=== PATIENT | male | born 1950 | race Caucasian/White ===

== ENCOUNTER 2021-04-05 12:46 | Day surgery (SDC) | payer MEDICARE, MEDICAID ==
[2021-03-31 11:14] LABS: BASOPHILS # (AUTO) 0.1 X10'3 (0-0.2); BASOPHILS % (AUTO) 0.7 % (0-1); EOSINOPHILS % (AUTO) 0.5 % (0-6); HEMATOCRIT 43.9 % (42.0-52.0); HEMOGLOBIN 15.4 g/dl (14.0-17.9); LYMPHOCYTES # (AUTO) 2.2 X10'3 (1.1-4.8); LYMPHOCYTES % (AUTO) 24.2 % (21-51); MEAN CORPUSCULAR HEMOGLOBIN 31.3 PG (27.0-31.0); MEAN CORPUSCULAR HGB CONC 35.1 g/dL (33.0-36.5); MEAN CORPUSCULAR VOLUME 89.2 FL (78-98); MEAN PLATELET VOLUME 7.1 FL (7.4-10.4); MONOCYTES # (AUTO) 0.5 X10'3 (0-0.9); MONOCYTES % (AUTO) 5.4 % (2-12); NEUTROPHILS # (AUTO) 6.4 X10'3 (1.8-7.7); NEUTROPHILS % (AUTO) 69.2 % (42-75); PLATELET COUNT 540 X10'3 (140-440); RED BLOOD COUNT 4.92 X10'6 (4.70-6.10); RED CELL DISTRIBUTION WIDTH 20.4 % (11.5-14.5); WHITE BLOOD COUNT 9.2 X10'3 (4.5-11.0)
[2021-03-31 11:26] LABS: ALANINE AMINOTRANSFERASE 24 U/L (12-78); ALBUMIN 3.5 G/DL (3.4-5.0); ALKALINE PHOSPHATASE 54 IU/L (46-116); ANION GAP 13 (8-16); ASPARTATE AMINO TRANSFERASE 14 U/L (10-37); BILIRUBIN,DIRECT 0.1 MG/DL (0-0.3); BILIRUBIN,TOTAL 0.4 MG/DL (0.1-1.0); BLOOD UREA NITROGEN 8 MG/DL (7-18); BUN/CREATININE RATIO 8.5 (5.4-32.0); CALCIUM 8.5 MG/DL (8.5-10.1); CHLORIDE 100 MMOL/L (99-107); CHOLESTEROL 165 MG/DL (0-200); CREATININE 0.94 MG/DL (0.60-1.10); GLUCOSE 95 MG/DL (70-104); HDL CHOLESTEROL 55 MG/DL (35-60); LDL CHOLESTEROL 83 MG/DL (50-100); POTASSIUM 4.3 MMOL/L (3.5-5.1); SODIUM 135 MMOL/L (135-145); TOTAL CARBON DIOXIDE 21.9 MMOL/L (24-32); TOTAL PROTEIN 7.1 G/DL (6.4-8.2); TRIGLYCERIDES 94 MG/DL (20-135); eGFR 79 ML/MIN
[2021-03-31 12:31] LABS: PLATELET ESTIMATE INCREASED
[2021-03-31 12:32] LABS: ANISOCYTOSIS 3+; GIANT PLATELET FEW; LARGE PLATELETS FEW
[2021-03-31 12:39] LABS: PARTIAL THROMBOPLASTIN TIME 29 SECONDS (22-32)
[2021-04-05] VITALS (9 sets, daily range): BP systolic 127–157; BP diastolic 66–89
[2021-04-05] MEDS ORDERED: LORazepam 0.5 MG tablet PO PRN (13:05)
[2021-04-05] MEDS ORDERED: diphenhydrAMINE 25mg capsule PO PRN (13:05)
[2021-04-05] MEDS ORDERED: normal saline 1,000 ML IV SCH (13:05)
[2021-04-05] MEDS ORDERED: CLOB30CR11 TOP (13:13)
[2021-04-05] MEDS ORDERED: HYDR500C2 PO (13:13)
[2021-04-05] MEDS ORDERED: RIVA2.5T PO (13:13)
[2021-04-05] MEDS ORDERED: SIMV-42 PO (13:13)
[2021-04-05] MEDS ORDERED: DIVA-52 PO (13:13)
[2021-04-05] MEDS ORDERED: LISI10TA27 PO (13:13)
[2021-04-05] MEDS ORDERED: VENL75CA61 PO (13:13)
[2021-04-05] MEDS ORDERED: CLOP75TA34 PO (13:13)
[2021-04-05] MEDS ORDERED: heparin 1,000unit/ml 10ml vial 10 ML ONE (13:58)
[2021-04-05] MEDS ORDERED: midazolam 1 mg/ML 2ml injection ONE (13:58)
[2021-04-05] MEDS ORDERED: verapamil 2.5 mg/ml inj IV ONE (13:58)
[2021-04-05] MEDS ORDERED: fentaNYL/PF 50MCG/1 ML 2ML syringe ONE (13:58)
[2021-04-05] MEDS ORDERED: LIDOcaine 1% (10mg/ml)w/preservative injection 20ml MDV ONE (13:58)
[2021-04-05] MEDS ORDERED: nitroGLYCERIN-Tridil 50MG/D5W 250 ML IV ONE (13:59)
[2021-04-05] MEDS ORDERED: iohexol 350MG/ML 100ml bottle IV ONE (13:59)
[2021-04-05] MEDS ORDERED: ondansetron/PF 4mg/2ml inj IV PRN (15:50)
[2021-04-05] MEDS ORDERED: proCHLORperazine 10 MG/2 ml inj IV PRN (15:55)
[2021-04-05] MEDS ORDERED: OXAZEpam 15mg capsule PO PRN (15:55)
[2021-04-05] MEDS ORDERED: HYDROcodone/acetaminophen 10/325mg tab PO PRN (15:55)
[2021-04-05] MEDS ORDERED: HYDROcodone/acetaminophen 5mg/325mg tablet PO PRN (15:55)
== END 2021-04-05 17:45 | disposition home or self-care (01) ==
LOC: SSTAY O 12:46
PROVIDERS: ATTEND Internal Medicine Interventional Cardiology
DX: R94.39 Abnormal result of other cardiovascular function study (principal); I25.10 Atherosclerotic heart disease of native coronary artery without angina pectoris; J44.9 Chronic obstructive pulmonary disease, unspecified; I10 Essential (primary) hypertension; E78.5 Hyperlipidemia, unspecified; F31.9 Bipolar disorder, unspecified; I70.213 Atherosclerosis of native arteries of extremities with intermittent claudication, bilateral legs; I65.23 Occlusion and stenosis of bilateral carotid arteries; C94.6 Myelodysplastic disease, not elsewhere classified; F17.210 Nicotine dependence, cigarettes, uncomplicated; Z85.72 Personal history of non-Hodgkin lymphomas; Z88.8 Allergy status to other drugs, medicaments and biological substances; Z79.899 Other long term (current) drug therapy; Z79.01 Long term (current) use of anticoagulants; Z98.890 Other specified postprocedural states; Z82.49 Family history of ischemic heart disease and other diseases of the circulatory system; Z80.0 Family history of malignant neoplasm of digestive organs
CPT/HCPCS: 80048; 80061; 80076; 85025; 85610; 85730; 93005; 93458; 99152; 99153; C1769; C1894; J1644; J2250; J3010; J3490; Q0163; Q9967; 85008; A4620; A6258

== ENCOUNTER 2025-01-07 09:30 | Outpatient (CLI) | payer MEDICARE, MEDICAID ==
[~2025-01-07 09:30] MED LIST: CLOB30CR11 TOP; CLOP75TA34 PO; DIVA-112 PO; HYDR500C2 PO; LISI10TA27 PO; RIVA2.5T PO; SIMV-42 PO; VENL75CA61 PO
--- NOTE | 2025-01-07 11:28 | RADIOLOGY REPORT ---
Procedure: CT CT CHEST LOW DOSE Reason for study/Clinical History: NICOTINE DEPENDENCE, CIGARETTES COMPARISON: None TECHNIQUE: Multidetector CT of the chest was performed from the lung apices to the upper abdomen with out the use of intravenous contract. Axial, coronal and sagittal multiplanar reformats were performed . Radiation Dose Information: CT Dose: CTDI volume is 2.8 mGy. Dose-length product is 105.8 mGy*cm The dose indicators for CT are the volume Computed Tomography (CT) Dose Index (CTDIvol) and the Dose Length Product (DLP), and are measured in units of mGy and mGy-cm, respectively. These indicators are not patient dose, but values generated from the CT scanner acquisition factors. The report includes radiation exposure data for exposures received during this examination. FINDINGS: Lower neck: Normal thyroid. Lungs: No focal consolidation. Linear subsegmental atelectasis or scarring in the right middle lobe. 0.6 cm calcified granuloma in the left upper lobe, image 177. No suspicious pulmonary nodules Heart/Vascular Structures: Severe 3-vessel coronary artery disease. Lymph Nodes: No adenopathy Pleura: No pleural effusion or significant pneumothorax. Musculoskeletal: No acute osseous abnormality. Soft tissues: Normal. Upper abdomen: Limited portions of the upper abdomen are unremarkable. IMPRESSION: No suspicious pulmonary nodule. Severe 3-vessel coronary artery disease. LUNG RADS Category 1: Continue annual screening with LDCT
== END 2025-01-07 23:59 | disposition home or self-care (01) ==
LOC: RAD 09:30
PROVIDERS: ATTEND Family Medicine
DX: Z12.2 Encounter for screening for malignant neoplasm of respiratory organs (principal); I25.10 Atherosclerotic heart disease of native coronary artery without angina pectoris; F17.210 Nicotine dependence, cigarettes, uncomplicated
CPT/HCPCS: 71271